=== PATIENT | male | born 1985 | race Caucasian/White ===

== ENCOUNTER 2017-06-06 00:58 | Emergency (ER) | payer OTHER ==
[~2017-06-06] VITALS: Ht 165.1 cm; Wt 68.0 kg
[~2017-06-06 00:58] MED LIST: OFLOXACIN10 M1 BOTH EYES; PEPCID AC20 MG PO
[2017-06-06 02:31] VITALS: BP 122/72
== END 2017-06-06 02:32 | disposition home or self-care (01) ==
LOC: EME 00:58
DX: Z77.21 Contact with and (suspected) exposure to potentially hazardous body fluids (principal); Y99.0 Civilian activity done for income or pay
CPT/HCPCS: 99281; 99282